=== PATIENT | female | born 1990 | race African-American/Black ===

== ENCOUNTER 2016-06-20 15:46 | Emergency (ER) | payer OTHER ==
--- NOTE | ~2016-06-20 | CT2 ---
[facility] A Service of [facility] RADIOLOGY TEXT RESULTS PATIENT: KASIA MCKEON LOCATION: [facility] : [birth year] UNIT #: [id number] AGE: [address]: Barry Welch MD SEX: F ORDER DR: [id number] [facility] [address] [place], [place] [address] [id number] E MR#: [id number] Acc #: [id number] NAME: KASIA MCKEON : 1990 SEX: F STUDY DATE/TIME: 06/20/2016 15:53 UNIT: [facility] ROOM: STUDY DESCRIPTION: CT Abd and Pelv W Cont Attending Physician: Barry Welch M.D. Ordering Physician: Ranjit Serrano D.O. Primary Care Physician: [facility], MEDICAL IMAGING REPORT This report is preliminary unless electronic signature is present EXAM CT of the abdomen and pelvis with IV contrast media HISTORY Left leg pain for 5 years. TECHNIQUE Axial imaging of the abdomen and pelvis was obtained with IV contrast media. This CT exam was performed with one or more of the following radiation dose reduction techniques: automatic exposure control, adjustment of mA and/or kV according to patient size, and iterative reconstruction. FINDINGS Lung bases in this patient are normal. Scans through the liver are normal. Gallbladder is unremarkable. Pancreas, spleen, adrenal glands, and kidneys are normal. No dilated or thickened loops of bowel are identified. There are some dilated vascular structures in the broad ligament. Small amount of free fluid is seen dependently in the cul-de-sac. This can be physiologic. There is a somewhat dilated gonadal vein on the left. It does appear patent to the left renal vein. No other pelvic masses or fluid collections seen. The IVC and left iliac vein appear normal. CONCLUSION Somewhat dilated vessels in the broad ligament bilaterally with a prominent left gonadal vein, probably insignificant. Small amount of free fluid in the cul-de-sac. No acute findings in the abdomen or pelvis. Dictated by... Abhi Gottlieb M.D. [facility] A Service of [facility] RADIOLOGY TEXT RESULTS PATIENT: KASIA MCKEON LOCATION: [facility] : [birth year] UNIT #: [id number] AGE: [address]: Barry Welch MD SEX: F ORDER DR: THIS IS AN ELECTRONICALLY VERIFIED REPORT Abhi Gottlieb M.D. at 06/21/2016 7:10 AM Javed TD: 06/20/2016 18:16 JOB #: [id number] MEDICAL IMAGING REPORT Page 1 of 1 COPY
--- NOTE | ~2016-06-20 | US85 ---
[facility] A Service of [facility] RADIOLOGY TEXT RESULTS PATIENT: KASIA MCKEON LOCATION: [facility] : 90 UNIT #: [id number] AGE: [address]: Barry Welch MD SEX: F ORDER DR: [id number] [facility] [address] [place], [place] [address] [id number] E MR#: [id number] Acc #: [id number] NAME: KASIA MCKEON : 1990 SEX: F STUDY DATE/TIME: 06/20/2016 14:31 UNIT: [facility] ROOM: STUDY DESCRIPTION: [facility] [facility] Attending Physician: Barry Welch M.D. Ordering Physician: Ranjit Serrano D.O. [facility] MEDICAL IMAGING REPORT This report is preliminary unless electronic signature is present EXAM Left lower extremity venous duplex, 06/20/2016. HISTORY Left lower extremity edema for 5 years off and on starting again yesterday. Evaluate for deep vein thrombosis. TECHNIQUE Venous ultrasound examination of the left lower extremity was performed using grayscale, spectral Doppler and color flow Doppler imaging. FINDINGS The examination is negative. There is no evidence of left lower extremity deep venous thrombus from the groin to the lower calf. Visualized greater saphenous vein is also patent. IMPRESSION Negative examination. No evidence of left lower extremity deep venous thrombosis. Dictated by... Xavier Tillman M.D. THIS IS AN ELECTRONICALLY VERIFIED REPORT Xavier Tillman M.D. at 06/21/2016 7:55 AM CARL/sherin TD: 06/20/2016 16:14 JOB #: [id number] MEDICAL IMAGING REPORT [facility] A Service of [facility] RADIOLOGY TEXT RESULTS PATIENT: KASIA MCKEON LOCATION: [facility] : 90 UNIT #: [id number] AGE: [address]: Barry Welch MD SEX: F ORDER DR: Page 1 of 1 COPY
[2016-06-20 12:56] LABS: URINE SOURCE CLEAN CATCH
[2016-06-20 13:11] LABS: URINE APPEARANCE CLEAR; URINE BILIRUBIN NEG (NEG); URINE BLOOD NEG (NEG); URINE COLOR YELLOW; URINE GLUCOSE NEG (NEG); URINE KETONE NEG (NEG); URINE LEUKOCYTE ESTERASE NEG (NEG); URINE NITRATE NEG (NEG); URINE PH 7.5 (5-8); URINE PROTEIN NEG (NEG); URINE SPECIFIC GRAVITY 1.024 (1.003-1.035)
[2016-06-20 13:11] LABS: BASOPHIL# 0.1 X10e3 (0-0.3); BASOPHIL% 0.6 % (0-2.5); EOSINOPHIL# 0.2 X10e3 (0-0.7); EOSINOPHIL% 2.4 % (0.0-7.0); HEMATOCRIT 38.5 % (35.0-45.0); HEMOGLOBIN 12.7 gm/dL (12.0-16.0); LYMPHOCYTE# 1.5 X10e3 (1.0-3.5); LYMPHOCYTE% 18.1 % (17.0-45.0); MEAN CELL VOLUME 89.7 FL (83-96); MEAN CORPUSCULAR HEMOGLOBIN 29.7 PG (28-34); MEAN CORPUSCULAR HGB CONC 33.1 g/dL (30-36); MEAN PLATELET VOLUME 8.7 FL (6.5-11.5); MONOCYTE# 0.7 X10e3 (0-1.0); MONOCYTE% 8.1 % (3.0-12.0); NEUTROPHIL% 70.8 % (40-75); PLATELET COUNT 263 X10e3 (140-420); RED BLOOD COUNT 4.29 X10e (3.90-5.30); RED CELL DISTRIBUTION WIDTH 12.9 % (11.0-15.5); WHITE BLOOD COUNT 8.5 X10e3 (4.0-10.5)
[2016-06-20 13:13] LABS: DIFF IND NO
[2016-06-20 13:15] LABS: CULTURE INDICATED? NO
[2016-06-20 13:24] LABS: INR 1.1; PARTIAL THROMBOPLASTIN TIME 28.6 SECONDS (23.5-31.3); PROTHROMBIN TIME (PATIENT) 11.4 SECONDS (9.6-11.5)
[2016-06-20 13:48] LABS: ALBUMIN SERUM 3.8 g/dL (3.5-5.0); ALKALINE PHOSPHATASE 50 U/L (32-92); ALT (SGPT) 14 U/L (10-40); AST (SGOT) 16 U/L (10-42); BILIRUBIN,TOTAL 0.6 mg/dL (0.2-2.0); BLOOD UREA NITROGEN 10 mg/dL (9-23); BUN/CREATININE RATIO 16.66; CALCIUM SERUM 8.9 mg/dL (8.4-10.2); CARBON DIOXIDE 26 mmol/L (22-31); CHLORIDE 105 mmol/L (100-111); CREATININE SERUM 0.6 mg/dL (0.6-1.4); GLOM FILT RATE Estimated 125.8 mL/min (>60); GLUCOSE FASTING 91 mg/dL (70-110); POTASSIUM 3.7 mmol/L (3.5-5.1); PROTEIN TOTAL SERUM 7.1 g/dL (6.0-8.3); SODIUM 137 mmol/L (135-145)
[2016-06-20 13:52] LABS: BILIRUBIN, DIRECT <0.1 mg/dL (0.0-0.2); BILIRUBIN,INDIRECT 0.5 mg/dL (0.0-0.9)
== END 2016-06-20 18:00 | disposition home or self-care (01) ==
LOC: CED 15:46
PROVIDERS: Emergency Medicine
DX: M79.662 Pain in left lower leg (principal)
CPT/HCPCS: 36415; 74177; 80048; 80076; 81003; 83690; 84703; 85025; 85610; 85730; 93971; 99284; Q9967

== ENCOUNTER 2016-06-29 21:54 | Emergency (ER) | payer BC | END 2016-06-29 22:10 | disposition home or self-care (01) | LOC: CFTX 21:54 | DX: K02.9 Dental caries, unspecified (principal) | CPT/HCPCS: 99282 ==

== ENCOUNTER 2016-08-13 23:29 | Emergency (ER) | payer SELFPAY ==
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
== END 2016-08-14 03:35 | disposition home or self-care (01) ==
LOC: CED 23:29
DX: S16.1XXA Strain of muscle, fascia and tendon at neck level, initial encounter (principal); S39.012A Strain of muscle, fascia and tendon of lower back, initial encounter; S20.212A Contusion of left front wall of thorax, initial encounter; S70.02XA Contusion of left hip, initial encounter; V49.50XA Passenger injured in collision with unspecified motor vehicles in traffic accident, initial encounter; Y92.9 Unspecified place or not applicable
CPT/HCPCS: 71010; 72040; 72072; 73502; 84703; 96372; 99284; J1885